=== PATIENT | female | born 1985 | race Caucasian/White ===

== ENCOUNTER → 2017-06-26 | Outpatient (CLI) | payer BC ==
[~2017-06-26] MED LIST: IBUP800; MULVITMIND PO; Milk Of Ma400 MG/5 M; Percocet 5-3251 EACH PO; Vitafol-Ob+Dha1 EACH PO
== END | disposition home or self-care (01) ==
LOC: LAB 14:21
DX: R30.0 Dysuria (principal)
CPT/HCPCS: 87086

== ENCOUNTER 2017-11-12 18:49 | Inpatient (IN) | payer BC ==
[~2017-11-12] VITALS: Ht 167.6 cm; Wt 65.0 kg
[~2017-11-12 18:49] MED LIST changes: -IBUP800; -Milk Of Ma400 MG/5 M; -Percocet 5-3251 EACH PO; -Vitafol-Ob+Dha1 EACH PO
[2017-11-12 20:00] LABS: BASOPHILS ABSOLUTE AUTO 0.02 K/mm3 (0.00-0.23); BASOPHILS PERCENT AUTO 0 % (0-2); EOSINOPHILS ABSOLUTE AUTO 0.06 K/mm3 (0.00-0.68); EOSINOPHILS PERCENT AUTO 1 % (0-6); Hematocrit 37.1 % (33.0-51.0); IMMATURE GRAN ABSOLUTE AUTO 0.06 K/mm3 (0.00-0.10); IMMATURE GRAN PERCENT AUTO 1 % (0-1); LYMPHOCYTES ABSOLUTE AUTO 1.45 K/mm3 (0.84-5.20); LYMPHOCYTES PERCENT AUTO 12 % (21-46); MONOCYTES ABSOLUTE AUTO 0.87 K/mm3 (0.16-1.47); MONOCYTES PERCENT AUTO 7 % (4-13); Mean Corpuscular HGB 31.9 pg (26.0-34.0); Mean Corpuscular Volume 91 fL (80-100); Mean Platelet Volume 10.3 fL (9.1-12.4); NEUTROPHILS ABSOLUTE AUTO 9.96 K/mm3 (1.96-9.15); NEUTROPHILS PERCENT AUTO 80 % (41-73); Platelet Count 234 K/mm3 (150-400); RDW Coefficient Variation 12.5 % (11.7-14.2); RDW Standard Deviation 41.1 fL (35.1-46.3); Red Blood Cell Count 4.07 M/mm3 (3.80-5.20); White Blood Cell Count 12.42 K/mm3 (4.00-11.30)
[2017-11-12] MEDS ORDERED: Vitafol-Ob+Dha1 EACH PO (20:16)
[2017-11-12 22:37] LABS: PCO2 Cord - Arterial 41.2 mmHg (40-50); PO2 Cord - Arterial 19.5 mmHg (16-20)
[2017-11-12 22:39] LABS: PCO2 Cord - Venous 36.7 mmHg (40-50); PO2 Cord - Venous 29.1 mmHg (28-32); pH Umbilical Cord - Venous 7.39 (7.26-7.35)
[2017-11-13 06:02] LABS: BASOPHILS ABSOLUTE AUTO 0.02 K/mm3 (0.00-0.23); BASOPHILS PERCENT AUTO 0 % (0-2); EOSINOPHILS ABSOLUTE AUTO 0.02 K/mm3 (0.00-0.68); EOSINOPHILS PERCENT AUTO 0 % (0-6); Hematocrit 36.8 % (33.0-51.0); Hemoglobin 12.6 g/dL (11.5-16.0); IMMATURE GRAN ABSOLUTE AUTO 0.07 K/mm3 (0.00-0.10); IMMATURE GRAN PERCENT AUTO 1 % (0-1); LYMPHOCYTES ABSOLUTE AUTO 1.54 K/mm3 (0.84-5.20); LYMPHOCYTES PERCENT AUTO 10 % (21-46); MONOCYTES ABSOLUTE AUTO 1.21 K/mm3 (0.16-1.47); MONOCYTES PERCENT AUTO 8 % (4-13); Mean Corpuscular HGB 31.7 pg (26.0-34.0); Mean Corpuscular HGB Conc 34.2 g/dL (31.5-36.5); Mean Corpuscular Volume 93 fL (80-100); Mean Platelet Volume 10.7 fL (9.1-12.4); NEUTROPHILS ABSOLUTE AUTO 12.09 K/mm3 (1.96-9.15); NEUTROPHILS PERCENT AUTO 81 % (41-73); Platelet Count 219 K/mm3 (150-400); RDW Coefficient Variation 12.6 % (11.7-14.2); Red Blood Cell Count 3.97 M/mm3 (3.80-5.20); White Blood Cell Count 14.95 K/mm3 (4.00-11.30)
[2017-11-14] MEDS ORDERED: IBUP800 (14:30)
[2017-11-14] MEDS ORDERED: Percocet 5-3251 EACH PO (14:30)
[2017-11-14] MEDS ORDERED: Milk Of Ma400 MG/5 M (14:31)
== END 2017-11-14 16:40 | disposition home or self-care (01) | DRG 765 ==
LOC: OBS 18:49 → BC 18:51 → OBS 19:46 → BC 19:47
PROVIDERS: Obstetrics & Gynecology
PROC: 10D00Z1 Extraction of Products of Conception, Low, Open Approach (ICD-10-PCS; principal; 2017-11-12 20:00)
DX: O32.1XX0 Maternal care for breech presentation, not applicable or unspecified (principal); O60.14X0 Preterm labor third trimester with preterm delivery third trimester, not applicable or unspecified; O45.93 Premature separation of placenta, unspecified, third trimester; Z3A.36 36 weeks gestation of pregnancy; Z37.0 Single live birth
CPT/HCPCS: 36415; 81003; 82803; 85025; 86850; 86900; 86901; J0690; J1885; J2250; J2765; J3010; J3430; J7120

== ENCOUNTER → 2018-10-11 | Outpatient (CLI) | payer BC ==
[~2018-10-11] MED LIST changes: +IBUP800; +Milk Of Ma400 MG/5 M; +Percocet 5-3251 EACH PO; +Vitafol-Ob+Dha1 EACH PO
== END | disposition home or self-care (01) ==
LOC: LAB SHORT 17:34 → LAB 17:34
DX: R30.0 Dysuria (principal)
CPT/HCPCS: 87086

== ENCOUNTER 2019-01-29 16:49 | Inpatient (IN) | payer BC ==
[~2019-01-29] VITALS: Ht 167.6 cm; Wt 63.0 kg
[2019-04-09 10:48] LABS: BASOPHILS ABSOLUTE AUTO 0.02 K/mm3 (0.00-0.23); BASOPHILS PERCENT AUTO 0 % (0-2); EOSINOPHILS PERCENT AUTO 1 % (0-6); Hematocrit 38.3 % (33.0-51.0); Hemoglobin 12.6 g/dL (11.5-16.0); IMMATURE GRAN ABSOLUTE AUTO 0.03 K/mm3 (0.00-0.10); IMMATURE GRAN PERCENT AUTO 0 % (0-1); LYMPHOCYTES ABSOLUTE AUTO 1.36 K/mm3 (0.84-5.20); LYMPHOCYTES PERCENT AUTO 15 % (21-46); MONOCYTES ABSOLUTE AUTO 0.66 K/mm3 (0.16-1.47); MONOCYTES PERCENT AUTO 7 % (4-13); Mean Corpuscular HGB 30.9 pg (26.0-34.0); Mean Corpuscular HGB Conc 32.9 g/dL (31.5-36.5); Mean Corpuscular Volume 94 fL (80-100); Mean Platelet Volume 10.6 fL (9.1-12.4); NEUTROPHILS PERCENT AUTO 76 % (41-73); Platelet Count 275 K/mm3 (150-400); RDW Coefficient Variation 12.9 % (11.7-14.2); RDW Standard Deviation 44.1 fL (35.1-46.3); Red Blood Cell Count 4.08 M/mm3 (3.80-5.20); White Blood Cell Count 9.07 K/mm3 (4.00-11.30)
--- NOTE | 2019-04-10 08:18 | NUR ---
04/10/19 0818 Eliz Ramirez AT 0808 VIGOROUS BABY GIRL DELIVERED. PLACENTA DELIVERED INTACT AT 0809. APGARS 9/9. WEIGHED 2570 G (5-11). CORD BLOOD COLLECTED AND CORD GASES SENT WITH RT ELIAS.
[2019-04-10 08:34] LABS: PCO2 Cord - Arterial 55.3 mmHg (40-50); PO2 Cord - Arterial 17.3 mmHg (16-20); pH Cord - Arterial 7.31 (7.28-7.35)
[2019-04-10 08:36] LABS: PCO2 Cord - Venous 41.1 mmHg (40-50); PO2 Cord - Venous 28.9 mmHg (28-32); pH Umbilical Cord - Venous 7.37 (7.26-7.35)
--- NOTE | 2019-04-10 12:46 | NUR ---
ROUNDING MPM REPORTS THAT IS GOING WELL SO FAR. 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 I ENCOURAGED HER TO CALL FOR ANY FEEDING/LATCHING PROBLEMS.
--- NOTE | 2019-04-10 13:02 | NUR ---
PATIENT DRESSING SATURATED, AGATE SETTER BETTY AT BEDSIDE TO ASSESS. REINFORCED WITH ABD PAD. WILL CONTINUE TO MONITOR. FUNDUS FIRM. VAGINAL BLEEDING WNL.
--- NOTE | 2019-04-10 14:00 | NUR ---
PATIENT DRESSING SATURATED WITH SOME BLOODY DRAINAGE PRESENT ON ABD PAD. RN CHANGED DRESSING AND REINFORCED WITH A NEW PRESSURE DRESSING. WILL CONTINUE TO MONITOR.
--- NOTE | 2019-04-10 15:06 | NUR ---
PATIENT DRESSING SATURATED WITH SOME DRAINAGE PRESENT ON ABD PAD. RN REPLACED DRESSING AND REINFORCED WITH A NEW PRESSURE DRESSING. DR. LUCIA UPDATED. RN WILL CONTINUE TO MONITOR.
--- NOTE | 2019-04-10 17:30 | NUR ---
DRESSING 1/2 SATURATED. NO DRAINAGE TO ABD PAD. REINFORCED DRESSING IN PLACE.
[2019-04-11 06:00] LABS: BASOPHILS ABSOLUTE AUTO 0.03 K/mm3 (0.00-0.23); BASOPHILS PERCENT AUTO 0 % (0-2); EOSINOPHILS ABSOLUTE AUTO 0.07 K/mm3 (0.00-0.68); EOSINOPHILS PERCENT AUTO 1 % (0-6); Hematocrit 34.4 % (33.0-51.0); Hemoglobin 11.1 g/dL (11.5-16.0); IMMATURE GRAN ABSOLUTE AUTO 0.02 K/mm3 (0.00-0.10); IMMATURE GRAN PERCENT AUTO 0 % (0-1); LYMPHOCYTES ABSOLUTE AUTO 1.65 K/mm3 (0.84-5.20); LYMPHOCYTES PERCENT AUTO 20 % (21-46); MONOCYTES ABSOLUTE AUTO 0.81 K/mm3 (0.16-1.47); MONOCYTES PERCENT AUTO 10 % (4-13); Mean Corpuscular HGB 29.9 pg (26.0-34.0); Mean Corpuscular HGB Conc 32.3 g/dL (31.5-36.5); Mean Corpuscular Volume 93 fL (80-100); Mean Platelet Volume 10.8 fL (9.1-12.4); NEUTROPHILS ABSOLUTE AUTO 5.89 K/mm3 (1.96-9.15); NEUTROPHILS PERCENT AUTO 70 % (41-73); Platelet Count 209 K/mm3 (150-400); RDW Coefficient Variation 13.3 % (11.7-14.2); RDW Standard Deviation 44.8 fL (35.1-46.3); Red Blood Cell Count 3.71 M/mm3 (3.80-5.20); White Blood Cell Count 8.47 K/mm3 (4.00-11.30)
--- NOTE | 2019-04-11 10:59 | NUR ---
PATIENT ALREADY HAS PORTAL ACCOUNT THROUGH [facility]
--- NOTE | 2019-04-11 16:10 | NUR ---
Assumed care from Aquiles Chavez RN.
[2019-04-11] MEDS ORDERED: Percocet 5-3251 EACH PO (17:05)
[2019-04-11] MEDS ORDERED: IBUP800 PO (17:05)
--- NOTE | 2019-04-11 17:40 | NUR ---
No acute changes since assuming care. Pt denies additional needs/concerns. Pt d/c'd home ambulatory to care of .
== END 2019-04-11 17:40 | disposition home or self-care (01) | DRG 788 ==
LOC: BC 04-10 05:47
PROVIDERS: ADMIT Obstetrics & Gynecology
PROC: 10D00Z1 Extraction of Products of Conception, Low, Open Approach (ICD-10-PCS; principal; 2019-04-10 07:30)
DX: O34.211 Maternal care for low transverse scar from previous cesarean delivery (principal); Z3A.38 38 weeks gestation of pregnancy; Z37.0 Single live birth
CPT/HCPCS: 36415; 51702; 82803; 85025; 86850; 86900; 86901; J0694; J1885; J2590; J2765; J7120

== ENCOUNTER → 2019-01-29 | Outpatient (CLI) | payer BC ==
[2019-01-29 17:37] LABS: BASOPHILS ABSOLUTE AUTO 0.03 K/mm3 (0.00-0.23); BASOPHILS PERCENT AUTO 0 % (0-2); EOSINOPHILS ABSOLUTE AUTO 0.07 K/mm3 (0.00-0.68); EOSINOPHILS PERCENT AUTO 1 % (0-6); Hematocrit 34.1 % (33.0-51.0); Hemoglobin 11.3 g/dL (11.5-16.0); IMMATURE GRAN ABSOLUTE AUTO 0.03 K/mm3 (0.00-0.10); IMMATURE GRAN PERCENT AUTO 0 % (0-1); LYMPHOCYTES ABSOLUTE AUTO 1.49 K/mm3 (0.84-5.20); LYMPHOCYTES PERCENT AUTO 16 % (21-46); MONOCYTES ABSOLUTE AUTO 0.63 K/mm3 (0.16-1.47); MONOCYTES PERCENT AUTO 7 % (4-13); Mean Corpuscular HGB 30.8 pg (26.0-34.0); Mean Corpuscular HGB Conc 33.1 g/dL (31.5-36.5); Mean Corpuscular Volume 93 fL (80-100); Mean Platelet Volume 10.7 fL (9.1-12.4); NEUTROPHILS ABSOLUTE AUTO 6.92 K/mm3 (1.96-9.15); NEUTROPHILS PERCENT AUTO 76 % (41-73); Platelet Count 267 K/mm3 (150-400); RDW Coefficient Variation 12.7 % (11.7-14.2); RDW Standard Deviation 43.1 fL (35.1-46.3); Red Blood Cell Count 3.67 M/mm3 (3.80-5.20); White Blood Cell Count 9.17 K/mm3 (4.00-11.30)
== END | disposition home or self-care (01) ==
LOC: LAB SHORT 14:58 → LAB 14:58
PROVIDERS: Obstetrics & Gynecology
DX: Z34.83 Encounter for supervision of other normal pregnancy, third trimester (principal); Z3A.28 28 weeks gestation of pregnancy
CPT/HCPCS: 82950; 85025

== ENCOUNTER → 2019-04-01 | Outpatient (CLI) | payer BC ==
[~2019-04-01] MED LIST changes: +IBUP800 PO
[2019-04-03 00:06] LABS: CHLAMYDIA TRACHOMATIS, NAA Negative (Negative); NEISSERIA GONORRHOEAE, NAA Negative (Negative)
== END | disposition home or self-care (01) ==
LOC: LAB SHORT 11:44 → LAB 11:44
PROVIDERS: Family Medicine
DX: Z34.83 Encounter for supervision of other normal pregnancy, third trimester (principal); Z3A.36 36 weeks gestation of pregnancy
CPT/HCPCS: 87081; 87491; 87591; 87653

== ENCOUNTER 2019-04-15 23:27 | Emergency (ER) | payer BC ==
[~2019-04-15] VITALS: Ht 167.6 cm; Wt 61.2 kg
[2019-04-16 00:11] LABS: BASOPHILS ABSOLUTE AUTO 0.03 K/mm3 (0.00-0.23); BASOPHILS PERCENT AUTO 1 % (0-2); EOSINOPHILS ABSOLUTE AUTO 0.18 K/mm3 (0.00-0.68); EOSINOPHILS PERCENT AUTO 3 % (0-6); Hematocrit 38.4 % (33.0-51.0); Hemoglobin 12.1 g/dL (11.5-16.0); IMMATURE GRAN ABSOLUTE AUTO 0.02 K/mm3 (0.00-0.10); IMMATURE GRAN PERCENT AUTO 0 % (0-1); LYMPHOCYTES PERCENT AUTO 28 % (21-46); MONOCYTES ABSOLUTE AUTO 0.62 K/mm3 (0.16-1.47); MONOCYTES PERCENT AUTO 10 % (4-13); Mean Corpuscular HGB 29.9 pg (26.0-34.0); Mean Corpuscular HGB Conc 31.5 g/dL (31.5-36.5); Mean Corpuscular Volume 95 fL (80-100); Mean Platelet Volume 9.9 fL (9.1-12.4); NEUTROPHILS ABSOLUTE AUTO 3.54 K/mm3 (1.96-9.15); NEUTROPHILS PERCENT AUTO 58 % (41-73); Platelet Count 302 K/mm3 (150-400); RDW Coefficient Variation 12.7 % (11.7-14.2); RDW Standard Deviation 44.6 fL (35.1-46.3); Red Blood Cell Count 4.05 M/mm3 (3.80-5.20); White Blood Cell Count 6.09 K/mm3 (4.00-11.30)
[2019-04-16 00:31] LABS: Alanine Aminotransfer (ALT/SGP 50 U/L (12-78); Albumin, Blood 3.2 g/dL (3.4-5.0); Albumin/Globulin Ratio 0.8 (0.8-1.8); Alk Phos 133 U/L (50-136); Anion Gap 7 mmol/L (6-16); Aspartate Aminotrans (AST/SGOT 40 U/L (12-37); Bilirubin, Total 0.3 mg/dL (0.1-1.0); Blood Urea Nitrogen 14 mg/dL (8-24); Bun/Creatinine Ratio 25.2 (12.0-20.0); CO2, Blood 24 mmol/L (21-32); Calcium, Blood 8.9 mg/dL (8.5-10.1); Chloride, Blood 109 mmol/L (98-108); Creatinine, Blood 0.56 mg/dL (0.40-1.00); Globulin, Blood 4.1 g/dL (2.2-4.0); Glomerular Filtration Rate >60 (60-); Glucose, Blood 88 mg/dL (70-99); Potassium, Blood 3.9 mmol/L (3.5-5.5); Sodium, Blood 140 mmol/L (136-145); Total Protein, Blood 7.3 g/dL (6.4-8.2); Troponin I <0.015 ng/mL (0.000-0.040)
[2019-04-16 00:58] LABS: Source, Urine Clean Catch
[2019-04-16 01:02] LABS: Appearance, Urine Clear (Clear); Bilirubin, Urine Neg (Neg); Blood, Urine 4+ (Neg); Color, Urine Yellow (P-Yellow); Glucose Qualitative, Urine Neg (Neg); Ketones, Urine Neg (Neg); Leukocyte Esterase, Urine Neg (Neg); Nitrite, Urine Neg (Neg); Protein, Urine Neg (Neg); Urobilinogen, Urine NORM (Normal); pH, Urine 6.5 (5.0-8.0)
[2019-04-16 01:07] LABS: White Blood Cells, Urine 0-2 /hpf (0-5)
[2019-04-16 01:08] LABS: Bacteria Few /hpf; Squamous Epithelial Cells Few /hpf (Few)
== END 2019-04-16 02:16 | disposition home or self-care (01) ==
LOC: ER 23:27
PROVIDERS: Emergency Medicine
DX: O16.5 Unspecified maternal hypertension, complicating the puerperium (principal); Z88.8 Allergy status to other drugs, medicaments and biological substances; Z79.899 Other long term (current) drug therapy
CPT/HCPCS: 36415; 71046; 80053; 81001; 83880; 84484; 85025; 93005; 93010; 99283-25

== ENCOUNTER 2020-03-03 06:08 | Day surgery (SDC) | payer BC ==
[~2020-03-03] VITALS: Ht 167.6 cm; Wt 51.5 kg
[~2020-03-03 06:08] MED LIST changes: +Norethindrone0.35 MG PO
--- NOTE | 2020-03-03 06:30 | NUR ---
Ambulatory in Day Surgery History, Chart, Medications and Allergies reviewed before start of procedure. Lungs clear T/O to Auscultation. Pre-Op teaching done. Pt verbalizes understanding.
--- NOTE | 2020-03-03 08:41 | NUR ---
RECIEVED HAYLEY AND REPORT VSS DRESSING CDI
--- NOTE | 2020-03-03 09:12 | NUR ---
Discharge instructions reviewed with patient. Patient verbalizes understanding. Copy given to patient to take home. Patient States Post-Procedure ride home has been arranged. Discharged via wheelchair to private car for ride home.
== END 2020-03-03 23:09 | disposition home or self-care (01) ==
LOC: ORSCMMR 06:08 → ORD 07:30 → ORSCMMR 07:30 → ORD 13:45 → ORSCMMR 23:09
PROVIDERS: Surgery
PROC: 0WQF0ZZ Repair Abdominal Wall, Open Approach (ICD-10-PCS; principal; 2020-03-03 07:30)
DX: K42.9 Umbilical hernia without obstruction or gangrene (principal)
CPT/HCPCS: A9270-GY; J0690; J2405; J2704; J3010; J7120

== ENCOUNTER → 2021-02-22 | Outpatient (CLI) | payer BC ==
[2021-02-24 04:09] LABS: CHLAMYDIA TRACHOMATIS, NAA Negative (Negative)
== END | disposition home or self-care (01) ==
LOC: LAB 18:14 → LAB SHORT 18:14
PROVIDERS: Obstetrics & Gynecology
DX: Z34.81 Encounter for supervision of other normal pregnancy, first trimester (principal)
CPT/HCPCS: 87491; 87591

== ENCOUNTER 2021-03-16 08:27 | Day surgery (SDC) | payer BC ==
[~2021-03-16] VITALS: Wt 48.1 kg
[2021-03-16] MEDS ORDERED: Endometrin100 MG VAG (10:17)
== END 2021-03-16 12:40 | disposition home or self-care (01) ==
LOC: ATC 08:27
DX: O98.819 Other maternal infectious and parasitic diseases complicating pregnancy, unspecified trimester (principal); A49.8 Other bacterial infections of unspecified site; Z3A.00 Weeks of gestation of pregnancy not specified; Z79.899 Other long term (current) drug therapy
CPT/HCPCS: 96361; 96365; J3411; J3475; J7030; J7042

== ENCOUNTER 2021-05-26 17:38 | Inpatient (IN) | payer BC ==
[~2021-05-26] VITALS: Ht 167.6 cm; Wt 52.6 kg
[~2021-05-26 17:38] MED LIST changes: +Endometrin100 MG VAG
[2021-05-26 20:30] LABS: Influenza A, PCR NEGATIVE (NEGATIVE); Influenza B, PCR NEGATIVE (NEGATIVE); Resp Syncytial Virus, PCR NEGATIVE (NEGATIVE); SARS-Cov-2 (COVID-19) PCR, MMC NEGATIVE (NEGATIVE)
[2021-05-27 00:37] LABS: BASOPHILS ABSOLUTE AUTO 0.04 K/mm3 (0.00-0.23); BASOPHILS PERCENT AUTO 0 % (0-2); EOSINOPHILS ABSOLUTE AUTO 0.18 K/mm3 (0.00-0.68); EOSINOPHILS PERCENT AUTO 2 % (0-6); Hematocrit 33.9 % (33.0-51.0); Hemoglobin 11.5 g/dL (11.5-16.0); IMMATURE GRAN ABSOLUTE AUTO 0.06 K/mm3 (0.00-0.10); IMMATURE GRAN PERCENT AUTO 1 % (0-1); LYMPHOCYTES ABSOLUTE AUTO 2.98 K/mm3 (0.84-5.20); LYMPHOCYTES PERCENT AUTO 24 % (21-46); MONOCYTES ABSOLUTE AUTO 0.83 K/mm3 (0.16-1.47); MONOCYTES PERCENT AUTO 7 % (4-13); Mean Corpuscular HGB 31.2 pg (26.0-34.0); Mean Corpuscular HGB Conc 33.9 g/dL (31.5-36.5); Mean Corpuscular Volume 92 fL (80-100); NEUTROPHILS ABSOLUTE AUTO 8.18 K/mm3 (1.96-9.15); NEUTROPHILS PERCENT AUTO 67 % (41-73); NRBC ABSOLUTE 0.02 K/mm3 (0.00-0.02); NRBC Auto 0.2 /100 WBC (0.0-0.2); Platelet Count 301 K/mm3 (150-400); RDW Coefficient Variation 12.3 % (11.7-14.2); RDW Standard Deviation 41.1 fL (35.1-46.3); Red Blood Cell Count 3.69 M/mm3 (3.80-5.20); White Blood Cell Count 12.27 K/mm3 (4.00-11.30)
[2021-05-28 05:10] LABS: BASOPHILS ABSOLUTE AUTO 0.03 K/mm3 (0.00-0.23); BASOPHILS PERCENT AUTO 1 % (0-2); EOSINOPHILS ABSOLUTE AUTO 0.15 K/mm3 (0.00-0.68); EOSINOPHILS PERCENT AUTO 3 % (0-6); Hematocrit 27.7 % (33.0-51.0); Hemoglobin 9.3 g/dL (11.5-16.0); IMMATURE GRAN ABSOLUTE AUTO 0.01 K/mm3 (0.00-0.10); IMMATURE GRAN PERCENT AUTO 0 % (0-1); LYMPHOCYTES PERCENT AUTO 28 % (21-46); MONOCYTES ABSOLUTE AUTO 0.54 K/mm3 (0.16-1.47); MONOCYTES PERCENT AUTO 10 % (4-13); Mean Corpuscular HGB 30.9 pg (26.0-34.0); Mean Corpuscular HGB Conc 33.6 g/dL (31.5-36.5); Mean Corpuscular Volume 92 fL (80-100); NEUTROPHILS ABSOLUTE AUTO 3.37 K/mm3 (1.96-9.15); NEUTROPHILS PERCENT AUTO 59 % (41-73); Platelet Count 216 K/mm3 (150-400); RDW Coefficient Variation 12.4 % (11.7-14.2); RDW Standard Deviation 41.6 fL (35.1-46.3); Red Blood Cell Count 3.01 M/mm3 (3.80-5.20)
--- NOTE | 2021-05-28 10:35 | NUR ---
Pt called RN to room regarding some tenderness on inside of right thigh. Reports she has some varicose veins there, also stated she got up kind of quickly last night and may have pulled a muscle. Will notify .
--- NOTE | 2021-05-28 11:36 | NUR ---
No acute changes this shift. Pt reports understanding of d/c instructions. Reports she feels comfortable discharging and monitoring pain in leg w/out further testing prior to d/c. 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 No acute changes this shift. Pt feels comfortable and ready to d/c home. Verbalized understanding of f/u at OB and declines f/u at [facility]. Pt d/c'd home ambulatory to care of .
== END 2021-05-28 11:25 | disposition home or self-care (01) | DRG 807 ==
LOC: ER 17:38 → BC 17:39 → MEDS 17:39 → BC 18:32
PROVIDERS: ADMIT Obstetrics & Gynecology
PROC: 10E0XZZ Delivery of Products of Conception, External Approach (ICD-10-PCS; principal; 2021-05-27)
PROC: 3E033VJ Introduction of Other Hormone into Peripheral Vein, Percutaneous Approach (ICD-10-PCS; 2021-05-27)
DX: O42.012 Preterm premature rupture of membranes, onset of labor within 24 hours of rupture, second trimester (principal); Z37.1 Single stillbirth; Z3A.20 20 weeks gestation of pregnancy; O69.0XX0 Labor and delivery complicated by prolapse of cord, not applicable or unspecified; Z20.822 Contact with and (suspected) exposure to COVID-19; Z98.890 Other specified postprocedural states
CPT/HCPCS: 0241U; 36415; 76815; 85025; 86850; 86900; 86901; 99285-25; J0690; J1885; J2405; J2590; J3010; J7120

== ENCOUNTER → 2021-10-04 | Outpatient (CLI) | payer SELFPAY ==
[2021-10-05 15:08] LABS: HPV 16 Negative (Negative); HPV 18 Negative (Negative); HPV OTHER HR TYPES Negative (Negative)
== END | disposition home or self-care (01) ==
LOC: LAB 15:59 → LAB SHORT 15:59
PROVIDERS: Obstetrics & Gynecology
DX: Z12.4 Encounter for screening for malignant neoplasm of cervix (principal)
CPT/HCPCS: 87624; G0123

== ENCOUNTER 2022-06-30 10:42 | Inpatient (IN) | payer BC ==
[~2022-06-30] VITALS: Ht 167.6 cm; Wt 53.8 kg
[2022-06-30 11:12] LABS: BASOPHILS ABSOLUTE AUTO 0.09 K/mm3 (0.00-0.23); BASOPHILS PERCENT AUTO 1 % (0-2); EOSINOPHILS ABSOLUTE AUTO 0.07 K/mm3 (0.00-0.68); EOSINOPHILS PERCENT AUTO 1 % (0-6); Hemoglobin 13.4 g/dL (11.5-16.0); IMMATURE GRAN ABSOLUTE AUTO 0.02 K/mm3 (0.00-0.10); IMMATURE GRAN PERCENT AUTO 0 % (0-1); LYMPHOCYTES ABSOLUTE AUTO 1.71 K/mm3 (0.84-5.20); LYMPHOCYTES PERCENT AUTO 17 % (21-46); MONOCYTES ABSOLUTE AUTO 0.83 K/mm3 (0.16-1.47); MONOCYTES PERCENT AUTO 8 % (4-13); Mean Corpuscular HGB 30.7 pg (26.0-34.0); Mean Corpuscular HGB Conc 33.5 g/dL (31.5-36.5); Mean Corpuscular Volume 92 fL (80-100); Mean Platelet Volume 9.6 fL (9.1-12.4); NEUTROPHILS PERCENT AUTO 73 % (41-73); Platelet Count 359 K/mm3 (150-400); RDW Coefficient Variation 12.2 % (11.7-14.2); Red Blood Cell Count 4.37 M/mm3 (3.80-5.20); White Blood Cell Count 10.22 K/mm3 (4.00-11.30)
[2022-06-30 11:20] LABS: Calcium, Ionized (POC) 1.21 mmol/L (1.10-1.46); Chloride (POC) 105 mmol/L (98-108); Creatinine (POC) 0.4 mg/dL (0.6-1.0); Glucose (ISTAT POC) 130 mg/dL (70-99); Hemoglobin (POC) 13.9 g/dL (12.0-16.0); Potassium (POC) 3.7 mmol/L (3.5-5.5); Sodium (POC) 142 mmol/L (135-148); Total CO2 (POC) 22 mmol/L (21-32)
[2022-06-30 14:22] LABS: Albumin/Globulin Ratio 0.9 (0.8-1.8); Bilirubin, Total 0.4 mg/dL (0.1-1.0); Bun/Creatinine Ratio 17.2 (12.0-20.0); Calcium, Blood 9.1 mg/dL (8.5-10.1); Creatinine, Blood 0.58 mg/dL (0.40-1.00); Globulin, Blood 4.3 g/dL (2.2-4.0); Potassium, Blood 3.8 mmol/L (3.5-5.5); Total Protein, Blood 8.3 g/dL (6.4-8.2)
--- NOTE | 2022-06-30 14:50 | NUR ---
arrived to unit PT ARRIVED TO UNIT FROM ER VIA WHEELCHAIR. SKIN SURROUNDING EYE RED IN COLOR PT ABLE TO OPEN EYE, SCLERA INSIDE ALSO RED IN COLOR. SHE REPORTS SOME BLURRINESS TO HER VISION ON THAT SIDE. DENIES ANY OTHER SYMPTOMS. PT HAS BEEN USING A HOT PACK ON HER EYE SHE STATES HELPS RELIEVE THE PRESSURE.
--- NOTE | 2022-06-30 20:30 | NUR ---
REVIEWED INDUSTRIAL MACHINERY MECHANIC ADMISSION ASSESSMENT WHEN SHE WAS CHARTING IT, SKIN ASSESSMENT PERFORMED BY THIS RN AND ADELINA PENDLETON UPON ARRIVAL TO THE FLOOR.
--- NOTE | 2022-06-30 22:57 | NUR ---
PATIENT WALKING AROUND, INDEPENDENT IN ROOM. REPORTS BEING ABLE TO SEE OUT OF EYE BUT VISION IS SLIGHTLY BLURRY. RT EYE IS SWOLLEN AND RED. DRAINAGE PRESENT AND CLEANED WITH WARM WATER. PATIIENT APPLIED WARM COMPRESS TO EYE FOR COMFORT. TYLENOL PRN GIVEN FOR PAIN. VOIDING AND TOLERATING WELL. WILL PLACE PATIENT NPO AT MIDNIGHT IN PREPERATION FOR PROCEDURE. PATIENT WAS UPDATED ON PLAN OF CARE. NO QUESTIONS OR CONCERNS AT THIS TIME. WILL CONTINUE TO MONITOR.
[2022-07-01 04:47] LABS: BASOPHILS ABSOLUTE AUTO 0.04 K/mm3 (0.00-0.23); BASOPHILS PERCENT AUTO 1 % (0-2); EOSINOPHILS ABSOLUTE AUTO 0.23 K/mm3 (0.00-0.68); EOSINOPHILS PERCENT AUTO 4 % (0-6); Hematocrit 35.7 % (33.0-51.0); Hemoglobin 12.1 g/dL (11.5-16.0); IMMATURE GRAN ABSOLUTE AUTO 0.01 K/mm3 (0.00-0.10); IMMATURE GRAN PERCENT AUTO 0 % (0-1); LYMPHOCYTES ABSOLUTE AUTO 1.39 K/mm3 (0.84-5.20); LYMPHOCYTES PERCENT AUTO 27 % (21-46); MONOCYTES ABSOLUTE AUTO 0.48 K/mm3 (0.16-1.47); MONOCYTES PERCENT AUTO 9 % (4-13); Mean Corpuscular HGB 31.1 pg (26.0-34.0); Mean Corpuscular HGB Conc 33.9 g/dL (31.5-36.5); Mean Corpuscular Volume 92 fL (80-100); Mean Platelet Volume 9.8 fL (9.1-12.4); NEUTROPHILS ABSOLUTE AUTO 3.04 K/mm3 (1.96-9.15); NEUTROPHILS PERCENT AUTO 59 % (41-73); Platelet Count 275 K/mm3 (150-400); RDW Coefficient Variation 12.6 % (11.7-14.2); RDW Standard Deviation 42.3 fL (35.1-46.3); Red Blood Cell Count 3.89 M/mm3 (3.80-5.20); White Blood Cell Count 5.19 K/mm3 (4.00-11.30)
[2022-07-01 05:13] LABS: Bun/Creatinine Ratio 14.1 (12.0-20.0); Calcium, Blood 8.1 mg/dL (8.5-10.1); Creatinine, Blood 0.57 mg/dL (0.40-1.00); Potassium, Blood 3.7 mmol/L (3.5-5.5)
--- NOTE | 2022-07-01 06:15 | NUR ---
PATIENT EYE SWELLING DECREASED SIGNIFICANTLY. PATIENT MEDICATED PER EMAR X1 WITH TYLENOL AND WARM COMPRESS APPLIED. PATIENT PLACED NPO AT MIDNIGHT. NO CHANGES FROM PREVIOUS NOTE.
[2022-07-01] MEDS ORDERED: METO25ER PO (11:55)
[2022-07-01] MEDS ORDERED: HAIR, SKIN AND1 EAC3 PO (11:55)
[2022-07-01] MEDS ORDERED: ELIQUIS5 M2 PO (11:56)
[2022-07-01] MEDS ORDERED: CULTURELLE ADV1 EACH PO (11:57)
--- NOTE | 2022-07-01 13:57 | NUR ---
DR. JOHNSON IN ROOM AT ABOUT 7526
--- NOTE | 2022-07-01 14:40 | NUR ---
POWERGLIDE AND NAOMI ORDER PLACED PER DR. JOHNSON. NAOMI CALLED, PLAN TO CALL BACK WITH TIME OF SCHEDULED INFUSION FOR 3/.
--- NOTE | 2022-07-01 18:31 | NUR ---
SOB: THIS RN CALLED TO ROOM AT 1614. PT REPORTS SOB AFTER WALKING TO SAY HI TO FRIENDS IN DAY SURGERY. PT ALSO REPORTED ANXIETY, AND SOME "ACHY CHEST PRESSURE". VITAL SIGNS TAKEN, WNL. LUNGS AND HEART SOUNDS ASCULTATED, NO CHANGE FROM PREVIOUS ASSESSMENT. WILL CTM. 1655 PT CALLED THIS RN INTO ROOM AGAIN, REPORTING THAT SOB HAS NOT GONE AWAY AND STILL FEELS CHEST PRESSURE AND IS ANXIOUS. VS TAKEN AGAIN AND ARE WNL, HEART AND LUNG SOUNDS UNCHANGED. DR. VELÁZQUEZ PAGED AT 1650 BY THIS RN. NO CALL BACK BY [address] SILVESTRE CALLED. SEE ORDER FOR EKG FROM DR. CASANOVA. DR. SILVESTRE TO SEE PT. JOSR SAHU RN IN ROOM AT ABOUT 1709 TO DO EKG. EKG WNL AND PLACED IN PAPER CHART. 1730 PT REPORTED FEELING BETTER, LESS ANXIOUS AND LESS SOB AFTER RESTING IN BED. DR. VELÁZQUEZ CALLED BACK AT 1830 AND THIS RN UPDATED HER ON PT STATUS. SEE NEW ORDER FOR HYDROXYZINE PRN. WILL CTM AND PASS REPORT ON TO NOC RN
--- NOTE | 2022-07-01 18:43 | NUR ---
SUMMARY: PT IS A/O, VSS TONIGHT. R EYE SWELLING IS DECREASED FROM SHIFT START, PT REPORTS IMPROVEMENT WITH WARM COMPRESSES. IV ANTIBIOTICS INFUSED THROUGH POWERGLIDE TO LUE. PT IS INDEPENDENT IN ROOM. VOIDING AND PLEASENT. GIVEN TYLENOL PRN FOR PAIN.PLAN TO DC TOMORROW MORNING AND NAOMI APPOINTMENTS ARE SCHEDULED.
--- NOTE | 2022-07-02 07:33 | NUR ---
SUMMARY PT REPORTS FEELING BETTER.ANXIOUS FOR DISCHARGE HOME TODAY.
--- NOTE | 2022-07-02 17:18 | NUR ---
SHIFT SUMMARY PT A&OX4, VSS/RA, ESTIVEN PO, VOIDING WELL, AMB INDEPENDENTLY IN ROOM, IV SL/ ABX-VANCO, ZOSYN, BACTRIM, PER EMAR: PRETREAT VANCO WITH BENADRYL 50 MG PO, POWERGLIDE RUE. WILL REPORT TO ONCOMING JESSIE KELLY.
[2022-07-03 10:23] LABS: Creatinine, Blood 0.74 mg/dL (0.40-1.00); Vancomycin, Trough 17.2 ug/mL (5.0-10.0)
--- NOTE | 2022-07-03 18:03 | NUR ---
SHIFT SUMMARY PT A&OX4, VSS/RA, ESTIVEN PO, VOIDING WELL, AMB INDEPENDENTLY IN ROOM, IV SL/ ABX IV-VANCO, ZOSYN, PO BACTRIM, PER EMAR: PRETREAT VANCO WITH BENADRYL 50 MG PO, POWERGLIDE RUE. WILL REPORT TO ONCOMING JESSIE KELLY.
--- NOTE | 2022-07-04 07:13 | NUR ---
PT HAD UNEVENTFUL NIGHT; VSS, PT DENIED CP/PRESSURE. MILD REDNESS NOTED AROUND RIGHT EYE, NO DRNG NOTED, SCLERRA REMAINS REDDNED. PT DENIED PAIN OR VISUAL DISTURBANCES. PT PRE MEDICATED W/BENADRYL BEFORE VANCO GIVEN, ESTIVEN WELL. PT ESTIVEN PO, DENIED N/V, IS VOIDING URINE W/O DIFFICULTY. PLAN TO D/C HOME TODAY AND F/U W/DR ELIZABETH OUTPUT. BEDSIDE REPORT GIVEN TO Katharine RODRIGUEZ RN.
[2022-07-04] MEDS ORDERED: AMOCLA875 PO (09:28)
[2022-07-04] MEDS ORDERED: SULTRIDS PO (09:29)
--- NOTE | 2022-07-04 12:35 | NUR ---
DISCHARGE PT DISCHARGED HOME FROM UNIT AT APROX 1236. PT GIVEN WRITTEN AND VERBAL DISCHARGE INSTRUCTIONS AND VERBALIZED UNDERSTANDING OF THESE INSTRUCTIONS. IV REMOVED. DECLINED ASSISTANCE TO CAR, AMBULATED INDEPENDENTLY.
== END 2022-07-04 12:34 | disposition home or self-care (01) | DRG 603 ==
LOC: ER 10:42 → SURS 13:30 → MEDS 13:30 → SURS 14:22
PROVIDERS: Ophthalmology; Physician Assistant; ADMIT Family Medicine
DX: L03.213 Periorbital cellulitis (principal); H04.001 Unspecified dacryoadenitis, right lacrimal gland; R00.2 Palpitations; R53.1 Weakness; R01.1 Cardiac murmur, unspecified; Z79.899 Other long term (current) drug therapy; Z87.74 Personal history of (corrected) congenital malformations of heart and circulatory system; Z98.890 Other specified postprocedural states; Z95.2 Presence of prosthetic heart valve; Z79.01 Long term (current) use of anticoagulants
CPT/HCPCS: 36415; 70481; 80047; 80048; 80053; 80202; 82565; 83605; 84484; 85014; 85025; 87040; 93005; 93010; 96374-59; 99284-25; A9270; J1200; J2543; J3370; J7030; J7050; Q9967

== ENCOUNTER 2022-07-02 00:54 | Day surgery (SDC) | payer BC ==
[~2022-07-02 00:54] MED LIST changes: +CULTURELLE ADV1 EACH PO; +ELIQUIS5 M2 PO; +HAIR, SKIN AND1 EAC3 PO; +METO25ER PO
== END 2022-07-02 23:59 | disposition home or self-care (01) ==
LOC: ATC 00:54
DX: L03.213 Periorbital cellulitis (principal); Z79.899 Other long term (current) drug therapy

== ENCOUNTER 2022-07-03 00:26 | Day surgery (SDC) | payer BC ==
[2022-07-04] MEDS ORDERED: AMOCLA875 PO (09:28)
[2022-07-04] MEDS ORDERED: SULTRIDS PO (09:29)
== END 2022-07-03 22:42 | disposition home or self-care (01) ==
LOC: ATC 00:26
DX: L03.213 Periorbital cellulitis (principal)

== ENCOUNTER 2022-07-04 00:48 | Day surgery (SDC) | payer BC ==
[2022-07-04] MEDS ORDERED: AMOCLA875 PO (09:28)
[2022-07-04] MEDS ORDERED: SULTRIDS PO (09:29)
== END 2022-07-04 22:48 | disposition home or self-care (01) ==
LOC: ATC 00:48
DX: L03.213 Periorbital cellulitis (principal); Z79.899 Other long term (current) drug therapy

== ENCOUNTER → 2022-11-23 | Outpatient (CLI) | payer BC ==
[~2022-11-23] MED LIST changes: +AMOCLA875 PO; +SULTRIDS PO
[2022-11-23 12:56] LABS: BASOPHILS ABSOLUTE AUTO 0.05 K/mm3 (0.00-0.23); BASOPHILS PERCENT AUTO 1 % (0-2); EOSINOPHILS ABSOLUTE AUTO 0.17 K/mm3 (0.00-0.68); EOSINOPHILS PERCENT AUTO 2 % (0-6); Hematocrit 45.4 % (33.0-51.0); Hemoglobin 15.2 g/dL (11.5-16.0); IMMATURE GRAN ABSOLUTE AUTO 0.01 K/mm3 (0.00-0.10); IMMATURE GRAN PERCENT AUTO 0 % (0-1); LYMPHOCYTES ABSOLUTE AUTO 1.63 K/mm3 (0.84-5.20); LYMPHOCYTES PERCENT AUTO 22 % (21-46); MONOCYTES ABSOLUTE AUTO 0.81 K/mm3 (0.16-1.47); MONOCYTES PERCENT AUTO 11 % (4-13); Mean Corpuscular HGB 30.4 pg (26.0-34.0); Mean Corpuscular HGB Conc 33.5 g/dL (31.5-36.5); Mean Corpuscular Volume 91 fL (80-100); Mean Platelet Volume 9.5 fL (9.1-12.4); NEUTROPHILS ABSOLUTE AUTO 4.74 K/mm3 (1.96-9.15); NEUTROPHILS PERCENT AUTO 64 % (41-73); Platelet Count 310 K/mm3 (150-400); RDW Coefficient Variation 12.2 % (11.7-14.2); RDW Standard Deviation 40.6 fL (35.1-46.3); White Blood Cell Count 7.41 K/mm3 (4.00-11.30)
[2022-11-23 14:50] LABS: Progesterone 17.7 ng/mL; Thyroid Stimulating Hormone 2.2 uIU/mL (0.360-4.800)
[2022-11-24 09:10] LABS: HIV AB/P24 AG SCREEN Non Reactive (Non Reactive)
[2022-11-24 15:11] LABS: HBSAG SCREEN Negative (Negative)
[2022-11-25 03:11] LABS: CHLAMYDIA TRACHOMATIS, NAA Negative (Negative)
== END | disposition home or self-care (01) ==
LOC: LAB SHORT 10:20 → LAB 10:20
PROVIDERS: Obstetrics & Gynecology
DX: Z34.81 Encounter for supervision of other normal pregnancy, first trimester (principal); Z3A.00 Weeks of gestation of pregnancy not specified
CPT/HCPCS: 36415; 80055; 84144; 84443; 84702; 86695; 86696; 87389; 87491; 87591

== ENCOUNTER → 2022-12-29 | Outpatient (CLI) | payer BC | LOC: LAB SHORT 15:40 | DX: R82.90 Unspecified abnormal findings in urine (principal) | CPT/HCPCS: 87086 ==

== ENCOUNTER 2023-10-31 06:52 | Day surgery (SDC) | payer BC ==
[~2023-10-31] VITALS: Ht 167.6 cm; Wt 52.7 kg
[~2023-10-31 06:52] MED LIST changes: +IRON18 MG
[2023-10-31] MEDS ORDERED: NS 1,000 ML IV ONE ×2 (06:55→08:47)
[2023-10-31] MEDS ORDERED: Heparin Sodium 1000 Units/ML 10ML MDV ONE ×2 (06:55→08:47)
[2023-10-31 07:16] VITALS: BP 123/85
[2023-10-31] MEDS ORDERED: Aspir 8181 MG PO (07:21)
[2023-10-31] MEDS ORDERED: JENCYCLA0.35 MG PO (07:22)
[2023-10-31] MEDS ORDERED: PRENATAL TABLE1 EAC2 PO (07:22)
[2023-10-31] MEDS ORDERED: Ketorolac Tromethamine 30mg Vial ONE (08:42)
[2023-10-31] MEDS ORDERED: FentaNYL Citrate 50 MCG/ML 2 ML Injection ONE (08:46)
[2023-10-31] MEDS ORDERED: Midazolam HCl 1MG / ML 2ML Vial ONE (08:46)
[2023-10-31 09:45] VITALS: BP 145/91
[2023-10-31 10:00] VITALS: BP 104/74
[2023-10-31 10:15] VITALS: BP 107/70
[2023-10-31 10:30] VITALS: BP 107/81
[2023-10-31 11:00] VITALS: BP 102/71
--- NOTE | 2023-10-31 11:20 | NUR ---
PT AND S/O VERBALIZES UNDERSTANDING WRITTEN AND VERABAL INSTRUCTIONS. DENIES QUESTIONS. PT R FEMORAL SITE REMAINS C/D/I. NADN. VSS. PT DRESSES SELF WITHOUT DIFF. PT IV DC'D. CATH INTACT. PRESSURE DSG APPLIED. PT DC TO HOME VIA S/O BY ESPERANZA
== END 2023-10-31 11:25 | disposition home or self-care (01) ==
LOC: MHTC 06:52 → ORSCMMR 06:53 → MHTC 07:00
DX: N94.89 Other specified conditions associated with female genital organs and menstrual cycle (principal); I83.893 Varicose veins of bilateral lower extremities with other complications; Z95.2 Presence of prosthetic heart valve; Z79.82 Long term (current) use of aspirin; Z79.899 Other long term (current) drug therapy
CPT/HCPCS: 76937; 99152; 99153; C1769; C1887; C1889; C1894; J1644; J1885; J2250; J3010; J7030; Q9967